=== PATIENT | male | born 1955 | race Hispanic/Latino ===

== ENCOUNTER 2021-05-16 12:52 | Emergency (ER) | payer OTHER ==
[2021-05-16] MEDS ORDERED: METHYLPREDNISOLONE 125 MG INJ ONE (13:51)
[2021-05-16 15:33] LABS: SARS-COV-2 RT PCR NEGATIVE (NEGATIVE)
--- NOTE | 2021-05-16 15:49 | ER ---
Nurse's Notes [facility] Name: Terry Eller Age: 65 yrs Sex: Male : 1955 Arrival Date: 05/16/2021 Time: 12:53 Bed 12 Private MD: Calos Hernandez Diagnosis: Acute sinusitis, unspecified Presentation: 05/16 13:19 Chief complaint: Patient states: Nasal congestion, sinus pains, painful swallowing for ll1 4-5 days. History of nasal problems. No known fever. Coronavirus screen: Vaccine status: Patient reports receiving the 1st dose of the Covid vaccine. Client denies travel out of the [place] in the last 14 days. congestion, sore throat, Client presents with at least one sign or symptom that may indicate coronavirus-19. Standard/surgical mask placed on the client. Ebola Screen: Patient denies travel to an Ebola-affected area in the 21 days before illness onset. Initial Sepsis Screen: Does the patient meet any 2 criteria? No. Patient's initial sepsis screen is negative. Does the patient have a suspected source of infection? Yes: Other: sore throat/nasal congestion. Risk Assessment: Do you want to hurt yourself or someone else? Patient reports no desire to harm self or others. Onset of symptoms was May 12, 2020. 13:19 Method Of Arrival: Ambulatory ll1 13:19 Acuity: ALANA 4 ll1 Historical: - Allergies: 13:18 PENICILLINS; ll1 13:18 Aspirin; ll1 - PMHx: 13:18 Asthma; Hypertensive disorder; Hypercholesterolemia; ll1 - PSHx: 13:18 Unable to Obtain; ll1 - Immunization history:: Client reports receiving the Chidi \T\ Chidi single-dose vaccine. - Social history:: Smoking status: Patient/guardian denies using tobacco, the patient reports quitting approximately 13 years ago. Screenin:47 Abuse screen: Denies threats or abuse. Denies injuries from another. Nutritional ic1 screening: No deficits noted. Tuberculosis screening: No symptoms or risk factors identified. Fall Risk None identified. Assessment: 13:47 Reassessment: Pt here by pov w c/o congestion, runny nose, and sore throat x several ic1 days. Denies any recent exposure. Denies cp or sob. Pt AAOx3. GCS 15. General: Appears in no apparent distress. Behavior is calm, cooperative. Pain: Denies pain. Neuro: No deficits noted. Cardiovascular: No deficits noted. Respiratory: No deficits noted. GI: No deficits noted. : No deficits noted. EENT: No deficits noted. Derm: No deficits noted. Musculoskeletal: No deficits noted. 15:40 Reassessment: Patient appears in no apparent distress at this time. No changes from ic1 previously documented assessment. Patient denies pain at this time. Patient states symptoms have improved. Vital Signs: 13:19 BP 141 / 90; Pulse 88; Resp 17; Temp 97.6; Pulse Ox 100% on R/A; Weight 86.18 kg; ll1 Height 5 ft. 11 in. (180.34 cm); Pain 5/10; 13:47 BP 127 / 87; Pulse 86; Resp 18; Temp 97.9(O); Pulse Ox 100% on R/A; ic1 15:54 BP 143 / 68; Pulse 86; Resp 20; Pulse Ox 100% on R/A; ic1 13:19 Body Mass Index 26.50 (86.18 kg, 180.34 cm) ll1 ED Course: 12:53 Patient arrived in ED. am2 12:53 Calos Hernandez MD is Private Physician. am2 13:10 Shellie Col[facility] F[facility]-C [facility]. kb 13:10 Shadi Mason MD is Attending Physician. kb 13:18 Arm band placed on Patient placed in an exam room, on a stretcher. ll1 13:21 Triage completed. ll1 13:47 Patient has correct armband on for positive identification. Bed in low position. Call ic1 light in reach. 15:39 Laly Rivera, KATHRYN is Primary Nurse. ic1 16:01 Patient did not have IV access during this emergency room visit. ic1 Administered Medications: 13:52 Drug: SOLU-Medrol (methylPREDNISolone sodium succinate) 125 mg Route: IM; Site: left ic1 gluteus; Outcome: 15:48 Discharge ordered by . kb 15:54 Discharged to home ambulatory. ic1 15:54 Condition: stable 15:54 Discharge instructions given to patient, Instructed on discharge instructions, follow up and referral plans. Demonstrated understanding of instructions, follow-up care. 16:02 Patient left the ED. ic1 Signatures: Shellie Colón, LEAD SOFTWARE TESTER-C LEAD SOFTWARE TESTER-Huyen Hernandez am2 Sherita Osman, RN RN ll1 Laly Rivera RN RN ic1
--- NOTE | 2021-05-16 15:49 | EDPHYS ---
Physician Documentation [facility] Name: Terry Eller Age: 65 yrs Sex: Male : 1955 Arrival Date: 05/16/2021 Time: 12:53 Bed 12 Private MD: Calos Hernandez ED Physician Shadi Mason HPI: 05/16 15:47 This 65 yrs old Male presents to ER via Ambulatory with complaints of Nasal kb Congestion, Sinus Pain, Difficulty Swallowing. 15:47 The patient presents with sore throat. Associated signs and symptoms: Pertinent kb positives: Sore throat nasal congestion. The patient has not experienced similar symptoms in the past. The patient has not recently seen a physician. 15:47 The patient describes throat pain as constant. Onset: The symptoms/episode kb began/occurred 5 day(s) ago. Severity of symptoms: At their worst the symptoms were mild, moderate, in the emergency department the symptoms are unchanged. Modifying factors: The symptoms are alleviated by nothing, the symptoms are aggravated by swallowing, Patient's oral intake status: good. Historical: - Allergies: 13:18 PENICILLINS; ll1 13:18 Aspirin; ll1 - PMHx: 13:18 Asthma; Hypertensive disorder; Hypercholesterolemia; ll1 - PSHx: 13:18 Unable to Obtain; ll1 - Immunization history:: Client reports receiving the Chidi \\T\\ Chidi single-dose vaccine. - Social history:: Smoking status: Patient/guardian denies using tobacco, the patient reports quitting approximately 13 years ago. ROS: 15:46 Constitutional: Negative for fever, chills, and weight loss. kb 15:46 ENT: Positive for sinus congestion, sore throat. 15:46 All other systems are negative. Exam: 15:46 Constitutional: This is a well developed, well nourished patient who is awake, alert, kb and in no acute distress. Head/Face: Normocephalic, atraumatic. ENT: Moist Mucous membranes Cardiovascular: Regular rate and rhythm with a normal S1 and S2. No gallops, murmurs, or rubs. No pulse deficits. Respiratory: Respirations even and unlabored. No increased work of breathing. Talking in full sentences Skin: Warm, dry with normal turgor. Normal color. MS/ Extremity: Pulses equal, no cyanosis. Neurovascular intact. Full, normal range of motion. Neuro: Awake and alert, GCS 15, oriented to person, place, time, and situation. Moves all extremities. Normal gait. Psych: Awake, alert, with orientation to person, place and time. Behavior, mood, and affect are within normal limits. Vital Signs: 13:19 BP 141 / 90; Pulse 88; Resp 17; Temp 97.6; Pulse Ox 100% on R/A; Weight 86.18 kg; ll1 Height 5 ft. 11 in. (180.34 cm); Pain 5/10; 13:47 BP 127 / 87; Pulse 86; Resp 18; Temp 97.9(O); Pulse Ox 100% on R/A; ic1 15:54 BP 143 / 68; Pulse 86; Resp 20; Pulse Ox 100% on R/A; ic1 13:19 Body Mass Index 26.50 (86.18 kg, 180.34 cm) ll1 MDM: 13:21 Patient medically screened. kb 15:46 Data reviewed: vital signs, nurses notes. Data interpreted: Pulse oximetry: on room air kb is 100 %. Interpretation: normal. Counseling: I had a detailed discussion with the patient and/or guardian regarding: the historical points, exam findings, and any diagnostic results supporting the discharge/admit diagnosis, lab results, the need for outpatient follow up, a family practitioner, to return to the emergency department if symptoms worsen or persist or if there are any questions or concerns that arise at home. 05/16 13:22 Order name: COVID-19/FLU A+B (Document "Date of Onset" if Symptomatic); Complete Time: kb 15:33 05/16 13:22 Order name: Strep; Complete Time: 15:13 05/16 15:12 Order name: Throat Culture EDMS Administered Medications: 13:52 Drug: SOLU-Medrol (methylPREDNISolone sodium succinate) 125 mg Route: IM; Site: left ic1 gluteus; Disposition Summary: 05/16/21 15:48 Discharge Ordered Location: Home Condition: Stable Diagnosis - Acute sinusitis, unspecified kb Followup: kb - With: Private Physician - When: 2 - 3 days - Reason: Recheck today's complaints, Continuance of care, Re-evaluation by your physician Followup: kb - With: Emergency Department - When: As needed - Reason: Worsening of condition Discharge Instructions: - Discharge Summary Sheet kb - Sinusitis, Adult, [id number] kb Forms: - Medication Reconciliation Form kb - Thank You Letter kb - Antibiotic Education kb - Prescription Opioid Use kb Addendum: 05/18/2021 07:05 Co-signature as Attending Physician, Shadi Mason MD I agree with the assessment and c muller plan of care. Signatures: Dispatcher [employer] EDCA Shellie Colón, MANAGER QUALITY IMPROVEMENT-C MANAGER QUALITY IMPROVEMENT-Shadi Rojas MD MD cha Lewis, Lynsay, RN RN ll1 Laly Rivera RN RN ic1
[2021-05-16 16:50] VITALS: O2SAT 100
[2021-05-16 16:52] VITALS: TEMP 97.9
[2021-05-16 16:53] VITALS: BP 143/68
== END 2021-05-16 16:02 | disposition home or self-care (01) ==
LOC: ER 12:52
DX: J01.90 Acute sinusitis, unspecified (principal); Z20.822 Contact with and (suspected) exposure to COVID-19; I10 Essential (primary) hypertension; Z88.0 Allergy status to penicillin; Z88.6 Allergy status to analgesic agent
CPT/HCPCS: 87070; 87081; 0240U; 96372; 99283; J2930

== ENCOUNTER 2021-05-17 10:14 | Emergency (ER) | payer OTHER ==
--- NOTE | 2021-05-17 11:14 | ER ---
Nurse's Notes [facility] Name: Terry Eller Age: 65 yrs Sex: Male : 1955 Arrival Date: 05/17/2021 Time: 10:15 Bed 19 Private MD: Calos Hernandez Diagnosis: Acute pharyngitis, unspecified Presentation: 05/17 10:26 Chief complaint: Patient states: "I WAS HERE YESTERDAY AND THEY TOLD ME TO COME BACK IF bp IT DIDN'T GET NO BETTER. MY NOSE IS STILL STOPPED UP, SO I CAME BACK.". Coronavirus screen: congestion, Client presents with at least one sign or symptom that may indicate coronavirus-19. Standard/surgical mask placed on the client. Ebola Screen: No symptoms or risks identified at this time. Initial Sepsis Screen: Does the patient meet any 2 criteria? No. Patient's initial sepsis screen is negative. Does the patient have a suspected source of infection? No. Patient's initial sepsis screen is negative. Risk Assessment: Do you want to hurt yourself or someone else? Patient reports no desire to harm self or others. Onset of symptoms is unknown. 10:26 Method Of Arrival: Ambulatory bp 10:26 Acuity: ALANA 5 bp Triage Assessment: 10:28 General: Appears in no apparent distress. comfortable, Behavior is calm, cooperative, bp appropriate for age. Pain: Denies pain. EENT: Reports nasal congestion. Neuro: No deficits noted. Cardiovascular: No deficits noted. Respiratory: No deficits noted. GI: No signs and/or symptoms were reported involving the gastrointestinal system. : No signs and/or symptoms were reported regarding the genitourinary system. Derm: No deficits noted. Musculoskeletal: No deficits noted. Historical: - Allergies: 10:28 PENICILLINS; bp 10:28 Aspirin; bp - PMHx: 10:28 Hypertensive disorder; Hypercholesterolemia; Asthma; bp - Immunization history:: Adult Immunizations up to date. - Social history:: Smoking status: Patient denies any tobacco usage or history of. Screenin:29 Abuse screen: Denies threats or abuse. Denies injuries from another. Nutritional bp screening: No deficits noted. Tuberculosis screening: No symptoms or risk factors identified. Fall Risk None identified. Assessment: 10:29 General: SEE TRIAGE NOTE. bp Vital Signs: 10: BP 126 / 67; Pulse 93; Resp 16; Temp 98.1; Pulse Ox 100% ; bp ED Course: 10:15 Patient arrived in ED. am2 10:15 Calos Hernandez MD is Private Physician. am2 10: Dru White, RN is Primary Nurse. bp 10:28 Eric Kendall PA is PHCP. jmm 10: Herminio Luz MD is Attending Physician. jm 10: Triage completed. bp 10:28 Arm band placed on. bp 10:29 Patient has correct armband on for positive identification. Bed in low position. Call bp light in reach. Side rails up X2. Adult w/ patient. 11:13 Calos Hernandez MD is Referral Physician. [facility] Administered Medications: No medications were administered Outcome: 11:13 Discharge ordered by . analia 11:30 Patient left the ED. bp Signatures: Eric Kendall PA PA Huyen Amin am2 Dru White, RN RN bp
--- NOTE | 2021-05-17 11:14 | EDPHYS ---
Physician Documentation [facility] Name: Terry Eller Age: 65 yrs Sex: Male : 1955 Arrival Date: 05/17/2021 Time: 10:15 Bed 19 Private MD: Calos Hernandez ED Physician Herminio Luz HPI: 05/17 11:11 This 65 yrs old Male presents to ER via Ambulatory with complaints of Nasal jmm Congestion. 11:11 The patient or guardian reports cough. Onset: The symptoms/episode began/occurred jmm gradually. Modifying factors: The symptoms are alleviated by nothing, the symptoms are aggravated by nothing. Associated signs and symptoms: Pertinent positives: sore throat. This is a 65 year old male with a history of htn, hlp, asthma that presents to the ED with complaints of ongoing nasal congestion. Patient developed sore throat today. Denies fever. . Historical: - Allergies: 10:28 PENICILLINS; bp 10:28 Aspirin; bp - PMHx: 10:28 Hypertensive disorder; Hypercholesterolemia; Asthma; bp - Immunization history:: Adult Immunizations up to date. - Social history:: Smoking status: Patient denies any tobacco usage or history of. ROS: 11:11 Constitutional: Negative for fever, chills, and weight loss, Cardiovascular: Negative jmm for chest pain, palpitations, and edema, Respiratory: Negative for shortness of breath, cough, wheezing, and pleuritic chest pain. 11:11 ENT: Positive for sinus congestion, sore throat. 11:11 All other systems are negative. Exam: 11:11 Constitutional: This is a well developed, well nourished patient who is awake, alert, jmm and in no acute distress. Head/Face: atraumatic. Eyes: EOMI, no conjunctival erythema appreciated 11:11 Neck: Trachea midline, Supple Chest/axilla: Normal chest wall appearance and motion. Cardiovascular: Regular rate and rhythm. No edema appreciated Respiratory: Normal respirations, no respiratory distress appreciated Abdomen/GI: Non distended, soft Back: Normal ROM Skin: General appearance color normal MS/ Extremity: Moves all extremities, no obvious deformities appreciated, no edema noted to the lower extremities Neuro: Awake and alert, normal gait Psych: Behavior is normal, Mood is normal, Patient is cooperative and pleasant 11:11 ENT: Posterior pharynx: Airway: normal, erythema, that is moderate. Vital Signs: 10:26 BP 126 / 67; Pulse 93; Resp 16; Temp 98.1; Pulse Ox 100% ; bp MDM: 10:42 Patient medically screened. [facility] 11:13 Data reviewed: vital signs, nurses notes. Counseling: I had a detailed discussion with jaime the patient and/or guardian regarding: the historical points, exam findings, and any diagnostic results supporting the discharge/admit diagnosis, lab results, the need for outpatient follow up, to return to the emergency department if symptoms worsen or persist or if there are any questions or concerns that arise at home. 05/17 10:42 Order name: Strep; Complete Time: 11:09 [facility] Administered Medications: No medications were administered Disposition: 11:41 Co-signature as Attending Physician, Herminio Luz MD. rn Disposition Summary: 05/17/21 11:13 Discharge Ordered Location: Home [facility] Condition: Stable [facility] Diagnosis - Acute pharyngitis, unspecified [facility] Followup: [facility] - With: Calos Hernandez MD - When: 2 - 3 days - Reason: Recheck today's complaints, Continuance of care, Re-evaluation by your physician Discharge Instructions: - Discharge Summary Sheet [facility] - Pharyngitis [facility] Forms: - Medication Reconciliation Form [facility] - Thank You Letter [facility] - Antibiotic Education [facility] - Prescription Opioid Use [facility] Prescriptions: - Flonase Allergy Relief 50 mcg/actuation Nasal spray,suspension - spray 2 spray by INTRANASAL route once daily as needed; 1 Container; Refills: [facility] 0, Product Selection Permitted - Zithromax Z-Huber 250 mg Oral Tablet - take 1 tablet by ORAL route as directed for 5 days Day 1 - take two (2) tablets [facility] one time. Day 2, 3, 4 , 5 take one (1) tablet once daily.; 6 tablet; Refills: 0, Product Selection Permitted Signatures: Dispatcher [employer] Eric Lugo PA PA jmm Nieto, Roman, MD MD rn Peltier, Brian RN RN bp
[2021-05-17 11:38] VITALS: BP 126/67; TEMP 98.1; O2SAT 100
== END 2021-05-17 11:30 | disposition home or self-care (01) ==
LOC: ER 10:14
DX: J02.9 Acute pharyngitis, unspecified (principal); Z20.822 Contact with and (suspected) exposure to COVID-19; I10 Essential (primary) hypertension; Z88.0 Allergy status to penicillin; Z88.6 Allergy status to analgesic agent
CPT/HCPCS: 87070; 87081; 99281